=== PATIENT | male | born 1940 | race Caucasian/White ===

== ENCOUNTER 2017-05-17 09:46 | Emergency (ER) | payer MEDICARE, BC ==
--- NOTE | 2017-05-17 10:16 | EDM.PDOC ---
ED HPI GENERAL MEDICAL PROBLEM - General Chief Complaint: Chest Pain Stated Complaint: CHEST PAINS Time Seen by Provider: 05/17/17 10:35 Source of Information: Reports: Patient History Limitations: Reports: Other (no old records) - History of Present Illness INITIAL COMMENTS - FREE TEXT/NARRATIVE: 77 yo male with limited medical hx has been having CP on and off recently. In the ER his pain worsened and his monitor revealed STEMI in inf and lateral leads. No CAD hx. On no meds. Onset: Today Onset Date: 05/17/17 Onset Time: 10:35 Duration: Minutes: Location: Reports: Chest Quality: Reports: Pressure Severity: Moderate Improves with: Reports: None Worsens with: Reports: None Context: Reports: Other Associated Symptoms: Reports: Diaphoresis. Denies: Fever/Chills, Shortness of Breath Treatments STR[employer]PER [employer] BUFFER: Reports: Other (see below) Anterior Chest Pain Score (Numeric/FACES): 3 - Related Data Allergies Allergy/AdvReac Type Severity Reaction Status Date / Time Penicillins Allergy Swelling Verified 05/17/17 10:00 Home Meds: Home Meds NK [No Known Home Meds] 05/29/13 [History] Past Medical History Cardiovascular History: Reports: High Cholesterol - Infectious Disease History Infectious Disease History: Reports: Chicken Pox, Measles, Mumps - Past Surgical History HEENT Surgical History: Reports: Cataract Surgery GI Surgical History: Reports: Colonoscopy, Hernia, Inguinal Social & Family History - Tobacco Use Smoking Status *Q: Former Smoker Years of Tobacco use: 45 Packs/Tins Daily: 1 Used Tobacco, but Quit: Yes Month Tobacco Last Used: November Second Hand Smoke Exposure: No - Caffeine Use Caffeine Use: Reports: Coffee, Tea - Alcohol Use Days Per Week of Alcohol Use: 7 Number of Drinks Per Day: 1 Total Drinks Per Week: 7 - Recreational Drug Use Recreational Drug Use: No ED ROS GENERAL - Review of Systems Review Of Systems: See Below Constitutional: Reports: No Symptoms HEENT: Reports: No Symptoms Respiratory: Reports: No Symptoms Cardiovascular: Reports: Chest Pain (today) Endocrine: Reports: No Symptoms GI/Abdominal: Reports: No Symptoms : Reports: No Symptoms Skin: Reports: Diaphoresis Neurological: Reports: No Symptoms ED EXAM, GENERAL - Physical Exam Exam: See Below Exam Limited By: No Limitations General Appearance: Alert, WD/WN, Mild Distress Eye Exam: Bilateral Eye: Normal Inspection Ears: Normal External Exam, Normal Canal, Hearing Grossly Normal, Normal TMs Ear Exam: Bilateral Ear: Auricle Normal, Canal Normal Nose: Normal Inspection, Normal Mucosa, No Blood Throat/Mouth: Normal Inspection, Normal Lips, Normal Oropharynx, Normal Voice, No Airway Compromise Head: Atraumatic Neck: Normal Inspection Respiratory/Chest: No Respiratory Distress, Lungs Clear, Normal Breath Sounds, No Accessory Muscle Use, Chest Non-Tender Cardiovascular: Regular Rate, Rhythm, Bradycardia GI/Abdominal: Normal Bowel Sounds, Soft, Non-Tender, No Distention Back Exam: Normal Inspection. No: CVA Tenderness (R), CVA Tenderness (L) Extremities: Normal Inspection, Normal Range of Motion, Non-Tender, No Pedal Edema Neurological: Alert, Oriented, CN II-XII Intact, Normal Cognition, No Motor/ Sensory Deficits Psychiatric: Normal Affect, Normal Mood Skin Exam: Warm, Dry, Intact, Normal Color, No Rash Lymphatic: No Adenopathy EKG INTERPRETATION EKG Date: 05/17/17 Time: 10:00 Rhythm: NSR Rate (Beats/Min): 50 [place]: Normal P-Wave: Present QRS: Normal ST-T: Normal QT: Normal Comparison: NA - No Prior EKG Course - Vital Signs Text/Narrative:: CP increased after arrival and ekg revealed acute inferior/lateral CA. Helicopter cannot fly to [place](weather), will transfer to [place]. Last Recorded V/S: Last Vital Signs Temp 35.7 C 05/17/17 10:09 Pulse 51 L 05/17/17 10:09 Resp 16 05/17/17 10:09 BP 155/68 H 05/17/17 10:09 Pulse Ox 96 05/17/17 10:09 - Orders/Labs/Meds Orders: Active Orders 24 hr Category Date Time Status Cardiac Monitoring [RC] .As Directed Care 05/17/17 10:02 Active EKG Documentation Completion [RC] ASDIRECTED Care 05/17/17 10:02 Active EKG Documentation Completion [RC] ASDIRECTED Care 05/17/17 10:33 Ordered BASIC METABOLIC PANEL,BMP [CHEM] Stat Lab 05/17/17 10:33 Ordered CBC W/O DIFF,HEMOGRAM [HEME] Stat Lab 05/17/17 10:33 Ordered TROPONIN I [CHEM] Stat Lab 05/17/17 10:33 Ordered UA W/MICROSCOPIC [URIN] Stat Lab 05/17/17 10:33 Uncollected Sodium Chloride 0.9% @ 125 MLS/HR (1000ml) Med 05/17/17 10:45 Ordered Sodium Chloride 0.9% [Normal Saline] 1,000 ml IV ASDIRECTED EKG 12 Lead [EK] Routine Ther 05/17/17 10:01 Ordered EKG 12 Lead [EK] Routine Ther 05/17/17 10:32 Ordered Medication Orders Sodium Chloride (Normal Saline) 1,000 mls @ 125 mls/hr IV ASDIRECTED MICHELLE Meds: Medications Generic Name Dose Route Start Last Admin Trade Name Freq PRN Reason Stop Dose Admin Sodium Chloride 1,000 mls @ 125 mls/hr 05/17/17 10:45 Normal Saline IV ASDIRECTED MICHELLE Discontinued Medications Generic Name Dose Route Start Last Admin Trade Name Freq PRN Reason Stop Dose Admin Aspirin 324 mg 05/17/17 10:17 05/17/17 10:22 Aspirin PO 05/17/17 10:18 324 mg ONETIME ONE Administration Clopidogrel Bisulfate 600 mg 05/17/17 10:34 Plavix PO 05/17/17 10:35 ONETIME ONE Heparin Sodium (Porcine) 5,000 units 05/17/17 10:34 Heparin Sodium IVPUSH 05/17/17 10:35 ONETIME ONE Morphine Sulfate 4 mg 05/17/17 10:33 Morphine IVPUSH 05/17/17 10:34 ONETIME ONE Departure - Departure Time of Disposition: 10:51 Disposition: DC/Tfer to Acute Hospital 02 Reason for Transfer *Q: Primary PCI Indicated Condition: Critical Clinical Impression: STEMI (ST elevation myocardial infarction) Qualifiers: Involved coronary artery: unspecified coronary artery Qualified Code(s): I21.3 - ST elevation (STEMI) myocardial infarction of unspecified site Referrals: Dennis Chavez PA-C [Primary Care Provider] - Forms: ED Department Discharge - My Orders Last 24 Hours: My Active Orders 05/17/17 10:01 EKG 12 Lead [EK] Routine 05/17/17 10:02 Cardiac Monitoring [RC] .As Directed EKG Documentation Completion [RC] ASDIRECTED 05/17/17 10:32 EKG 12 Lead [EK] Routine 05/17/17 10:33 EKG Documentation Completion [RC] ASDIRECTED BASIC METABOLIC PANEL,BMP [CHEM] Stat CBC W/O DIFF,HEMOGRAM [HEME] Stat TROPONIN I [CHEM] Stat UA W/MICROSCOPIC [URIN] Stat 05/17/17 10:45 Sodium Chloride 0.9% @ 125 MLS/HR (1000ml) Sodium Chloride 0.9% [Normal Saline] 1,000 ml IV ASDIRECTED - Assessment/Plan Last 24 Hours: My Active Orders 05/17/17 10:01 EKG 12 Lead [EK] Routine 05/17/17 10:02 Cardiac Monitoring [RC] .As Directed EKG Documentation Completion [RC] ASDIRECTED 05/17/17 10:32 EKG 12 Lead [EK] Routine 05/17/17 10:33 EKG Documentation Completion [RC] ASDIRECTED BASIC METABOLIC PANEL,BMP [CHEM] Stat CBC W/O DIFF,HEMOGRAM [HEME] Stat TROPONIN I [CHEM] Stat UA W/MICROSCOPIC [URIN] Stat 05/17/17 10:45 Sodium Chloride 0.9% @ 125 MLS/HR (1000ml) Sodium Chloride 0.9% [Normal Saline] 1,000 ml IV ASDIRECTED
[2017-05-17] MEDS ORDERED: Aspirin 81 MG Tab.Chew PO ONE (10:17)
[2017-05-17] MEDS ORDERED: Morphine 4 MG/ML Syringe IVPUSH ONE (10:33)
[2017-05-17] MEDS ORDERED: Heparin Sodium 5,000 Units/ML Vial IVPUSH ONE (10:34)
[2017-05-17] MEDS ORDERED: Clopidogrel 75 MG Tab PO ONE (10:34)
[2017-05-17] MEDS ORDERED: Sodium Chloride 0.9% 1,000 ML IV SCH (10:45)
== END 2017-05-17 11:00 ==
LOC: JP.ED 09:46
DX: I21.3 ST elevation (STEMI) myocardial infarction of unspecified site (principal); E78.00 Pure hypercholesterolemia, unspecified; Z87.891 Personal history of nicotine dependence; Z88.0 Allergy status to penicillin
CPT/HCPCS: 36415; 80048; 84484; 85027; 93005; 96374; 96375; 99285; A9270; J1644; J2270; J7040; 93010